=== PATIENT | male | born 1970 | race Caucasian/White ===

== ENCOUNTER 2022-01-04 10:09 | Emergency (ER) | payer BC, SELFPAY ==
[2022-01-04 10:24] VITALS: BP 155/99; PULSE 81; RESP 16; TEMP 35.9; O2SAT 100
--- NOTE | 2022-01-04 10:29 | ED.WOUNDLAC ---
HPI - Wound/Laceration General Chief Complaint: Wound/Laceration Stated Complaint: middle finger right hand injury Time Seen by Provider: 01/04/22 10:29 Source: patient, RN notes reviewed and old records reviewed Mode of arrival: ambulatory Limitations: no limitations History of Present Illness HPI narrative: 51 year old male who presents to [facility] are with complaints of laceration to his right middle finger dorsal aspect which occurred 1.5 to 2 hours prior to arrival at his home when he was cleaning garage and sliced it on broken nail that was sticking out. Patient reports that he washed his finger with running water and applied pressure dressing prior to arrival. He reports that his tetanus shot is not up to date. Onset (ago): hour(s) (1.5-2 hours prior to arrival) Location: other (right middle finger) Related Data Allergies Allergy/AdvReac Type Severity Reaction Status Date / Time No Known Allergies Allergy Unverified 02/09/18 11:32 Review of Systems Review of Systems: CONSTITUTIONAL: Denies fever, chills, or sweats. EYES: Denies visual changes, redness, or discharge. ENT: Denies rhinorrhea, congestion, sore throat, or otalgia. CARDIOVASCULAR: Denies chest pain, palpitations, or edema. RESPIRATORY: Denies cough or dyspnea. GASTROINTESTINAL: Denies abdominal pain, nausea, vomiting, or diarrhea. GENITOURINARY: Denies dysuria or hematuria. SKIN: Denies rash or itching, positive for laceration to dorsal aspect of right middle finger MUSCULOSKELETAL: Denies back pain, joint pain, or myalgia. NEUROLOGIC: Denies headache, numbness, or weakness. PSYCHIATRIC: Denies anxiety or depression. [facility] Past Medical History Medical History (Updated 01/05/22 @ 08:06 by Eunice High NP) Melanoma in situ of nose Surgical History Surgical History (Updated 01/05/22 @ 08:16 by Eunice High NP) H/O melanoma excision [place] teeth extracted Family History Family History (Updated 01/22/18 @ 09:53 by DOCTOR UNKNOWN) Father Family history of neuropathy Social History Social History (Updated 01/05/22 @ 08:06 by Eunice High NP) Smoking status: Never smoker Alcohol intake: current Alcohol use details: social Substance use: never Substance use type: does not use Living arrangements: with family Gender identity (if verbalized by the patient): Male Comments At time of signature, agree with nursing past medical, surgical, social and family history. There is no relevant family history pertinent to the presenting complaint Exam Narrative: GENERAL: Well-appearing, well-nourished, and in no acute distress. HEAD: Normocephalic, atraumatic. EYES: PERRLA and EOMI. ENT: Nares clear, no rhinorrhea or epistaxis. Mucous membranes moist.TM's normal with good light reflex, throat pink with no lesions or exudates or tonsil swelling NECK: Supple.no lymphadenopathy CHEST: Clear to auscultation. No respiratory distress.SAO2 100% on room air HEART: Regular rate and rhythm. No murmur heard. Normal peripheral pulses. ABDOMEN: Soft, nontender, nondistended, normal active bowel sounds. EXTREMITIES: Normal range of motion. No edema. SKIN: Warm, dry, no rash.4 cm laceration of dorsal right middle finger, no nail invlvement NEURO: No focal deficits. Alert and oriented x3. Course Course Level of Care: Express Care Visit Vital Signs Vital signs: Vital Signs Temperature 35.9 C L 01/04/22 10:24 Pulse Rate 81 01/04/22 10:24 Respiratory Rate 16 01/04/22 10:24 Blood Pressure 155/99 H 01/04/22 10:24 Pulse Oximetry 100 01/04/22 10:24 Temperature 35.9 C L 01/04/22 10:24 Pulse Rate 81 01/04/22 10:24 Respiratory Rate 16 01/04/22 10:24 Blood Pressure 155/99 H 01/04/22 10:24 Pulse Oximetry 100 01/04/22 10:24 Procedures Laceration right dorsal middle finger: Date: 01/04/22 Time: 11:00 Site: other (right middle finger) Side (If applicable): right Size (cm)
[2022-01-04] MEDS: TETANUS,DIPHTHERIA,AC PERTUSSIS ADULT (0.5 ML) BOOSTRIX IM (10:47)
== END 2022-01-04 11:56 | disposition home or self-care (01) ==
PROVIDERS: Emergency Provider Registered Nurse
DX: S61.212A Laceration without foreign body of right middle finger without damage to nail, initial encounter (principal); W45.0XXA Nail entering through skin, initial encounter; Z23 Encounter for immunization; Z86.006 Personal history of melanoma in-situ
CPT/HCPCS: 12002; 90471; 90715; 99203; G0463